=== PATIENT | female | born 1960 | race Caucasian/White ===

== ENCOUNTER → 2018-07-10 | Outpatient (CLI) | payer BC ==
[~2018-07-10] MED LIST: CHOL10002; MAGOXI400 PO; MELA3; PROG100; PROGESTERONE MI25 GM; ZOLP10 PO
== END | disposition home or self-care (01) ==
LOC: PLD 09:55 → LAB SHORT 09:55
DX: D22.5 Melanocytic nevi of trunk (principal)
CPT/HCPCS: 88305

== ENCOUNTER 2018-08-01 07:49 | Day surgery (SDC) | payer BC ==
[~2018-08-01] VITALS: Ht 170.2 cm; Wt 83.9 kg
[~2018-08-01 07:49] MED LIST changes: -CHOL10002; -MELA3; -PROGESTERONE MI25 GM
[2018-08-01] MEDS ORDERED: MELA3 (08:23)
[2018-08-01] MEDS ORDERED: CHOL10002 (08:24)
[2018-08-01] MEDS ORDERED: PROGESTERONE MI25 GM (08:26)
== END 2018-08-01 10:00 | disposition home or self-care (01) ==
LOC: ORSCSDS 07:49
PROVIDERS: Internal Medicine Gastroenterology
PROC: 0DBL8ZX Excision of Transverse Colon, Via Natural or Artificial Opening Endoscopic, Diagnostic (ICD-10-PCS; principal; 2018-08-01 09:00)
PROC: 0DBK8ZX Excision of Ascending Colon, Via Natural or Artificial Opening Endoscopic, Diagnostic (ICD-10-PCS; principal; 2018-08-01 09:00)
DX: Z12.11 Encounter for screening for malignant neoplasm of colon (principal); K63.5 Polyp of colon; Z86.010 Personal history of colon polyps; F41.9 Anxiety disorder, unspecified
CPT/HCPCS: 88305; J0330; J1980; J2405; J7120

== ENCOUNTER → 2020-10-25 | Outpatient (CLI) | payer BC ==
[~2020-10-25] MED LIST changes: +CHOL10002; +MELA3; +PROGESTERONE MI25 GM
== END ==
LOC: LAB SHORT 11:12
DX: D48.5 Neoplasm of uncertain behavior of skin (principal); D22.5 Melanocytic nevi of trunk
CPT/HCPCS: 88305

== ENCOUNTER → 2024-01-08 | Outpatient (CLI) | payer BC ==
[~2024-01-08] MED LIST changes: +GLUC500
[2024-01-13 16:21] LABS: HPV HIGH RISK BY TMA Not Detected; HPV SOURCE Cervical
== END ==
LOC: LAB 12:09 → LAB SHORT 12:09
PROVIDERS: Obstetrics & Gynecology
DX: Z01.419 Encounter for gynecological examination (general) (routine) without abnormal findings (principal)
CPT/HCPCS: 87624; G0123